=== PATIENT | male | born 1955 | race Caucasian/White ===

== ENCOUNTER 2016-10-15 19:20 | Emergency (ER) | payer BC ==
[2016-10-15] MEDS ORDERED: ONDANSETRON DISINTEGRATING 4 MG TAB ONE (19:53)
[2016-10-15] MEDS ORDERED: ONDANSETRON DISINTEGRATING 4 MG TAB PO ONE (20:00)
--- NOTE | 2016-10-15 20:50 | EDPHY ---
H & P Time Seen by Provider: 10/15/16 20:33 HPI/ROS: CHIEF COMPLAINT: Room spinning sensation HISTORY OF PRESENT ILLNESS: 61-year-old male presents with a room spinning sensation. He was standing on a ladder while screwing in a light bulb at 6:30 p.m.. He had sudden onset of room spinning sensation, associated with nausea. The vertigo increases with head movement and changing position. He ate dinner without change in symptoms. No associated symptoms. No recent head injury or neck injury. His symptoms have now resolved after Zofran ODT. REVIEW OF SYSTEMS: Constitutional: No fever, no chills Eyes: No visual changes ENT: No sore throat Respiratory: No cough, no shortness of breath Cardiac: No chest pain Gastrointestinal: No nausea, no vomiting, no abdominal pain Genitourinary: No hematuria, no dysuria Musculoskeletal: No leg pain or swelling Skin: No rash Neurological: No headache, no numbness, no weakness Psychiatric: No depression Past Medical/Surgical History: Denies Social History: Smoking Status: Never smoked Physical Exam: General Appearance: Alert, no distress Eyes: Pupils equal and round, no conjunctival pallor or injection, horizontal nystagmus, fast component to the left ENT, Mouth: Mucous membranes moist Neck: Normal inspection Respiratory: Lungs are clear to auscultation Cardiovascular: Regular rate and rhythm Gastrointestinal: Abdomen is soft and nontender Neurological: Alert, oriented x3, cranial nerves II through XII intact, motor 5 /5, sensory intact to light touch, normal gait. Skin: Warm and dry, no rash Extremities: Nontender, no pedal edema Psychiatric: Mood and affect normal Constitutional: Initial Vital Signs Temperature (C) 36.6 C 10/15/16 20:20 Heart Rate 54 L 10/15/16 20:20 Respiratory Rate 16 10/15/16 20:20 Blood Pressure 127/67 H 10/15/16 20:20 O2 Sat (%) 97 10/15/16 20:20 O2 Delivery Mode Room Air Allergies/Adverse Reactions: No Known Allergies Allergy (Unverified 10/15/16 20:20) Home Medications: Medication Instructions Recorded Cialis 10/15/16 Meclizine HCl [Meclizine HCl 25 mg 25 mg PO TID PRN #15 tab 10/15/16 (RX,OTC)] Medical Decision Making - Diagnostics EKG Interpretation: EKG interpreted by me reveals normal sinus rhythm, rate 53, no ST or T segment changes. ED Course/Re-evaluation: This patient presents with peripheral vertigo, without concerning signs or symptoms suggestive of central etiology. Neurologic exam is normal and symptoms have resolved. Safe/stable for d/c. Differential Diagnosis: Differential diagnosis includes TIA, stroke, intracranial hemorrhage, tumor, electrolyte abnormality and acute labyrinthitis. - Data Points Medications Given: Discontinued Medications Ondansetron HCl (Zofran Odt) 4 mg PO EDNOW ONE Stop: 10/15/16 20:01 Last Admin: 10/15/16 20:09 Dose: 4 mg Departure - Departure Disposition: Home, Routine, Self-Care Clinical Impression: Vertigo Condition: Good Instructions: Vertigo (ED) Referrals: Mariela Perez MD [Medical Doctor] - 2-3 days, if not improved (Follow-up if your symptoms recur.) Prescriptions: Meclizine HCl [Meclizine HCl 25 mg (RX,OTC)] 25 mg PO TID PRN #15 tab PRN Reason: Dizziness
--- NOTE | 2016-10-15 20:56 | CPEKG ---
Heart Rate: 53 RR Interval: 1132 P-R Interval: 176 QRSD Interval: 96 QT Interval: 444 QTC Interval: 417 P [place]: 63 QRS [place]: 55 T Wave [place]: 39 EKG Severity - NORMAL ECG - EKG Impression: SINUS RHYTHM Electronically Signed By: Betty Bhatti 15-Oct-2016 21:55:14
[2016-10-15] MEDS ORDERED: MECLIZINE HCL 25 MG TAB ONE (21:02)
[2016-10-15 21:07] VITALS: BP 117/77; PULSE 55; RESP 18; TEMP 98.4; O2SAT 96
== END 2016-10-15 21:06 | disposition home or self-care (01) ==
DX: R42 Dizziness and giddiness (principal); R11.0 Nausea